=== PATIENT | male | born 1950 | race Caucasian/White ===

== ENCOUNTER 2019-05-17 11:45 | Observation (INO) ==
--- NOTE | 2019-05-17 12:25 | Emergency Department Note ---
Disposition Clinical Impression: Elevated troponin Sinusitis Qualifiers: Sinusitis location: unspecified location Chronicity: acute Recurrence: not specified as recurrent Qualified Code(s): J01.90 - Acute sinusitis, unspecified Disposition: Admitted As Inpatient Condition: Fair Time of Disposition: 15:00 General Adult HPI - General Chief complaint: ED Shortness of Breath/Dyspnea Stated complaint: Fever,CATHY,CRABTREE Time Seen by Provider: 05/17/19 11:48 Source: family Limitations: no limitations Nursing Notes Reviewed: Yes Vital Signs Reviewed: Yes - History of Present Illness HPI Narrative: Mr. Briggs is a 69-year-old male presenting to the ED complaining of fever. His reports yesterday after mowing the lawn he came into the house and was shivering. Should have his temperature and it was 100.8. He is complaining of more shortness of breath and usual. He is on 2 L of home oxygen requiring 3 L today. He is also complaining of diffuse headache which she describes as a sinus-like headache. He is denying any productive cough reports that he has a cough that is producing white sputum. Per he has had poor oral intake for the past 2 days. Also complained of myalgia all over his body. Denies any recent exposure to sick individuals. Denies any rashes. Denies chest pain, abdominal pain, dysuria. Pain Scale: 7 - Related Data Home Medications Medication Instructions Recorded Confirmed Acetaminophen [Tylenol] 1,000 mg PO Q6H PRN 05/02/16 05/17/19 Albuterol Sulfate [Albuterol 2 puff IH Q4HR PRN 05/02/16 05/17/19 Inhaler] Aspirin Enteric Coated [Aspirin EC] 81 mg PO DAILY 05/02/16 05/17/19 Enalapril Maleate [Vasotec] 20 mg PO DAILY 05/02/16 05/17/19 FLUoxetine HCl [PROzac] 40 mg PO DAILY 05/02/16 05/17/19 Fexofenadine HCl 180 mg PO DAILY 05/02/16 05/17/19 Furosemide [Lasix] 80 mg PO DAILY 05/02/16 05/17/19 Lovastatin 40 mg PO DAILY 05/02/16 05/17/19 Metoprolol XL (24 HR) Succ [Toprol 50 mg PO DAILY 05/02/16 05/17/19 XL] Potassium Chloride [K-Tab ER] 20 meq PO DAILY 05/02/16 05/17/19 Fish Oil/Dha/Epa [Fish Oil 1,200 1 each PO DAILY 05/17/19 05/17/19 mg Fish Oil] Fluticasone Propionate Nasal 50 mcg NS DAILY PRN 05/17/19 05/17/19 [Flonase] Folic Acid/Multivit-Min/Lutein 1 each PO DAILY 05/17/19 05/17/19 [Adult Multivitamin Gummies] Allergies Allergy/AdvReac Type Severity Reaction Status Date / Time No Known Allergies Allergy Verified 04/25/16 10:55 Constitutional: Reports: fever, chills. Denies: weakness Eyes: Denies: eye pain, eye discharge, vision change ENT ED: Denies: ear pain, congestion, dysphagia Cardiovascular: Denies: chest pain, dyspnea on exertion, syncope Respiratory: Denies: dyspnea, wheezes Gastrointestinal: Denies: abdominal pain, nausea, vomiting Genitourinary: Denies: urgency, dysuria, frequency Musculoskeletal: Reports: myalgia Integumentary: Denies: rash, abrasion Neurological: Denies: headache, weakness Endocrine: Reports: fatigue Past Medical History - Past Medical History Medical history: Reports: hyperlipidemia, hypertension Surgical history: Reports: appendectomy Psychiatric history: Reports: anxiety, depression - Social History Smoking Status: Former smoker Smokeless Tobacco Status: No Alcohol use: Reports: heavy Drug use: Reports: none Physical Exam - General General appearance: alert - Head Head exam: atraumatic, normocephalic - Eye Eye exam: Present: normal appearance. Absent: EOMI, scleral icterus - ENT ENT exam: normal exam, normal oropharynx, mucous membranes moist - Neck Neck exam: Present: normal inspection, full ROM, trachea midline - Chest Chest inspection: Present: normal inspection. Absent: symmetric chest wall rise - Respiratory Respiratory exam: Present: normal lung sounds bilaterally. Absent: respiratory distress, wheezes - Cardiovascular Cardiovascular exam: Present: regular rate, normal rhythm, +S1, +S2 - Abdominal Exam Abdominal exam: Present: soft, Non-Tender. Absent: distention, guarding - Extremities Exam Extremities exam: Present: normal inspection, full ROM. Absent: pedal edema - Neurological Exam Neurological exam: Present: alert, oriented X3 (Oriented to person place time), CN II-XII intact (Vision intact, hearing intact. Strength 5 out of 5 upper and lower lobe. Facial sensation intact, uvula midline and midline.), other (No nuchal rigidity) - Psychiatric Psychiatric exam: Present: normal affect, normal mood - Skin Skin exam: Present: warm, dry, intact Course Vital Signs Temperature 101.6 F H 05/17/19 11:50 Pulse Rate 67 05/17/19 11:50 Respiratory Rate 24 05/17/19 11:50 Blood Pressure 137/62 05/17/19 11:50 O2 Sat by Pulse Oximetry 91 05/17/19 11:50 Temperature 102.3 F H 05/17/19 21:03 Pulse Rate 79 05/17/19 20:01 Respiratory Rate 20 05/17/19 20:01 Blood Pressure 178/75 05/17/19 20:01 O2 Sat by Pulse Oximetry 97 05/17/19 20:37 Oxygen Delivery Oxygen Delivery Nasal Cannula Medical Decision Making - MDM Narrative Medical decision making narrative: Mr. Garvin is a 61-year-old male presented to ED complaining of fevers. His reports yesterday after mowing the lawn he is shivering had fever 100.8. He is on home oxygen reports that he is requiring more oxygen, usually on 2 L this time requiring 3L. He denies any productive cough. His neurological exam is intact. No nuchal rigidity. Labs show troponin is 0.04. Patient and report no previous diagnosis of congestive heart failure although he is on 80mg Lasix at home. He does not follow any sodium or salt restriction diet. For the fever he will be treated with Augmentin is reporting sinusitis related symptoms. - Medical Records Medical records reviewed: Yes I reviewed the patient's medical records. - Lab Data Lab results reviewed: Yes I reviewed the patient's lab results. Result diagrams: 05/17/19 12:07 05/17/19 12:07 Lab Results 05/17/19 05/17/19 05/17/19 Range/Units 12:07 12:07 12:07 WBC 4.9 (4.3-11.1) K/mcL RBC 4.27 (4.19-5.50) M/mcL Hgb 12.9 (12.9-16.9) g/dL Hct 41.0 (37.5-50.1) % MCV 96.0 (83.0-100.0) fL MCH 30.2 (28.0-33.3) pg MCHC 31.5 L (31.6-35.5) g/dL RDW 12.3 (11.5-14.5) % Plt Count 134 L (140-400) K/mcL MPV 9.2 L (9.4-12.4) fL Immature Gran % 0.4 (0-4) % Seg Neutrophils % 75.3 % Lymphocytes % 13.8 % Monocytes % 9.9 % Eosinophils % 0.0 % Basophils % 0.6 % Neutrophils # 3.7 (1.6-8.9) K/mcL Lymphocytes # 0.7 (0.6-4.6) K/mcL Monocytes # 0.5 (0.0-1.3) K/mcL Eosinophils # 0.0 (0.0-0.6) K/mcL Basophils # 0.0 (0.0-0.2) K/mcL VBG pH (7.32-7.42) pH Units VBG pCO2 (41-51) mmHg VBG pO2 (25-50) mmHg VBG HCO3 (21-27) mEq/L Sodium 134 L (136-145) mEq/L Potassium 3.9 (3.5-5.1) mEq/L Chloride 99 (98-107) mEq/L Carbon Dioxide 31 H (23-29) mEq/L BUN 18 (8-23) mg/dL Creatinine 0.95 (0.70-1.30) mg/dL Est GFR ( Amer) > 60 (> 60) Est GFR (Non-Af Amer) > 60 (> 60) BUN/Creatinine Ratio 19 (6-26) Glucose 116 H (70-105) mg/dL Calculated Osmolality 281 (280-300) Lactic Acid 1.3 (0.5-2.2) mmol/L Calcium 9.0 (8.6-10.3) mg/dL Troponin I 0.04 H* (< 0.04) ng/mL B-Natriuretic Peptide (Less than 100) pg/mL Procalcitonin (0.00-0.15) ng/mL 05/17/19 05/17/19 05/17/19 Range/Units 12:07 12:07 12:48 WBC (4.3-11.1) K/mcL RBC (4.19-5.50) M/mcL Hgb (12.9-16.9) g/dL Hct (37.5-50.1) % MCV (83.0-100.0) fL MCH (28.0-33.3) pg MCHC (31.6-35.5) g/dL RDW (11.5-14.5) % Plt Count (140-400) K/mcL MPV (9.4-12.4) fL Immature Gran % (0-4) % Seg Neutrophils % % Lymphocytes % % Monocytes % % Eosinophils % % Basophils % % Neutrophils # (1.6-8.9) K/mcL Lymphocytes # (0.6-4.6) K/mcL Monocytes # (0.0-1.3) K/mcL Eosinophils # (0.0-0.6) K/mcL Basophils # (0.0-0.2) K/mcL VBG pH 7.36 (7.32-7.42) pH Units VBG pCO2 54 H (41-51) mmHg VBG pO2 45 (25-50) mmHg VBG HCO3 31 H (21-27) mEq/L Sodium (136-145) mEq/L Potassium (3.5-5.1) mEq/L Chloride (98-107) mEq/L Carbon Dioxide (23-29) mEq/L BUN (8-23) mg/dL Creatinine (0.70-1.30) mg/dL Est GFR ( Amer) (> 60) Est GFR (Non-Af Amer) (> 60) BUN/Creatinine Ratio (6-26) Glucose (70-105) mg/dL Calculated Osmolality (280-300) Lactic Acid (0.5-2.2) mmol/L Calcium (8.6-10.3) mg/dL Troponin I (< 0.04) ng/mL B-Natriuretic Peptide 60 (Less than 100) pg/mL Procalcitonin 0.27 H (0.00-0.15) ng/mL - Radiology Data Radiology results reviewed: Yes I reviewed the patient's radiology results. Attestation Statement - Attestation Attestation: I, Ermias June, examined this patient and my medical decision-making was reviewed with the TOOL DESIGN DRAFTSPERSON/PA/Advanced Practice Nurse/Resident Physician. I agree with the documented findings, disposition and treatment plan as described except to the extent set forth below. 69-year-old male presents emergency department for concerns of fever. Patient states he has congestion of his bilateral nasal sinuses, denies recent trauma, vomiting, diarrhea, chest pain, palpitations, syncope, abdominal pain, diarrhea, hematochezia, melena. Patient has a fever in the emergency department. He does not have meningismus findings. No tenderness to palpation of the midline posterior neck and is able to have range of motion of his neck in all directions without pain. He is awake alert and answering questions appropriately during the exam. Chest x-ray did not show obvious infiltrate. He denies dysuria or hematuria. Patient has an elevated troponin and his states that he was more fatigued and weak today as he is walking in the hospital. He takes 80 mg of Lasix daily however he denies a diagnosis of congestive heart failure. He states his last cardiac ultrasound was 2 years ago. He has an elevated troponin emergency department today, EKG did not show evidence of acute STEMI. I reviewed the EKG with the resident and agree with the interpretation. Patient will be admitted to the hospitalist for further care and evaluation.
[2019-05-17 12:32] LABS: Basophils % 0.6 %; Hemoglobin 12.9 g/dL (12.9-16.9); Immature Granulocytes % 0.4 % (0-4); Lymphocytes # 0.7 K/mcL (0.6-4.6); Lymphocytes % 13.8 %; Mean Corpuscular HGB Conc 31.5 g/dL (31.6-35.5); Mean Corpuscular Hemoglobin 30.2 pg (28.0-33.3); Mean Platelet Volume 9.2 fL (9.4-12.4); Monocytes # 0.5 K/mcL (0.0-1.3); Monocytes % 9.9 %; Neutrophils # 3.7 K/mcL (1.6-8.9); Platelet Count 134 K/mcL (140-400); Red Blood Count 4.27 M/mcL (4.19-5.50); Red Cell Distribution Width 12.3 % (11.5-14.5); Segmented Neutrophils % 75.3 %; White Blood Count 4.9 K/mcL (4.3-11.1)
[2019-05-17 12:51] LABS: VBG HCO3 31 mEq/L (21-27); VBG PCO2 54 mmHg (41-51); VBG PH 7.36 pH Units (7.32-7.42); VBG PO2 45 mmHg (25-50)
[2019-05-17 12:53] LABS: BUN/Creatinine Ratio 19 (6-26); Blood Urea Nitrogen 18 mg/dL (8-23); Carbon Dioxide 31 mEq/L (23-29); Chloride 99 mEq/L (98-107); Glucose 116 mg/dL (70-105); Osmolality,Calculated 281 (280-300); Potassium 3.9 mEq/L (3.5-5.1); Sodium 134 mEq/L (136-145); eGFR For African Americans > 60 (> 60); eGFR For Non-African Americans > 60 (> 60)
[2019-05-17] MEDS ORDERED: Acetaminophen 325 MG TABLET PO ONE (12:56)
[2019-05-17 12:57] LABS: Troponin I 0.04 ng/mL (< 0.04)
--- NOTE | 2019-05-17 14:30 | Electrocardiograph Report ---
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
[2019-05-17] MEDS ORDERED: Fluticasone Propionate Nasal 50 MCG/SPRAY BOTTLE NS PRN (15:33)
[2019-05-17] MEDS ORDERED: Ondansetron 4 MG/2 ML VIAL IVP PRN (15:34)
[2019-05-17] MEDS ORDERED: Acetaminophen 325 MG TABLET PO PRN (15:34)
--- NOTE | 2019-05-17 15:36 | Internal Med History&Physical ---
Date of Encounter: 05/17/19 Time of Encounter: 15:26 Internal Medicine - H&P: HPI Chief complaint: Fever Admitted From: Emergency Dept History of present illness: Arjun Briggs is a 69 M w hx morbid obesity, HFpEF, COPD, PAULINA on 2L, HTN, HLD, anx/dep, who p/w fever. Pt accompanied by who provides most of history; he is fairly exhausted. Says for the last 2 days he has felt alternating warm and chilled, and that took temp last night showing fever and again today still high. 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 He says he's had a headache and myalgias for the last two days, and that for the last 2-3 days noting increased nasal congestion. Does state he has some cough and sputum but this is baseline, feeling short of breath a bit too but no CP. His leg swelling is at baseline, too. Denies any sick contacts, no children/pets/public areas recently. No N/V/D, no abd pain, no rash, no dysuria. In the ED, pt febrile 102 and tachypneic 22-26. CXR wnl. Labs notable for WBC 4, Hb 13, Plt 134, Na 134, CO2 31, Cr 1, trop 0.04. Pt given augmentin for possible sinus infection and then admitted for cardiac evaluation. Past medical, surgical, social, and family histories reviewed and updated as below. Past Med Surg Social Fam HX - Past Medical History Medical history: hyperlipidemia, hypertension Additional medical history: sleep apnea, obesity, aroctic valve sclerosis, diastolic dysfunction, alcohol abuse Psychiatric history: anxiety, depression - Past Surgical History Surgical History: appendectomy Additional surgical history: T&A - Social History Smoking Status: Former smoker Smokeless Tobacco Status: No Alcohol use: heavy Drug use: none Internal Medicine - H&P: Meds Acetaminophen [Tylenol] 1,000 mg PO Q6H PRN 05/02/16 [History] Albuterol Sulfate [Albuterol Inhaler] 2 puff IH Q4HR PRN 05/02/16 [History] Aspirin Enteric Coated [Aspirin EC] 81 mg PO DAILY 05/02/16 [History] Enalapril Maleate [Vasotec] 20 mg PO DAILY 05/02/16 [History] FLUoxetine HCl [PROzac] 40 mg PO DAILY 05/02/16 [History] Fexofenadine HCl 180 mg PO DAILY 05/02/16 [History] Furosemide [Lasix] 80 mg PO DAILY 05/02/16 [History] Lovastatin 40 mg PO DAILY 05/02/16 [History] Metoprolol XL (24 HR) Succ [Toprol XL] 50 mg PO DAILY 05/02/16 [History] Potassium Chloride [K-Tab ER] 20 meq PO DAILY 05/02/16 [History] Fish Oil/Dha/Epa [Fish Oil 1,200 mg Fish Oil] 1 each PO DAILY 05/17/19 [History] Fluticasone Propionate Nasal [Flonase] 50 mcg NS DAILY PRN 05/17/19 [History] Folic Acid/Multivit-Min/Lutein [Adult Multivitamin Gummies] 1 each PO DAILY 05/17/19 [History] Allergy/AdvReac Type Severity Reaction Status Date / Time No Known Allergies Allergy Verified 04/25/16 10:55 All Systems PM: A 10-system review of systems was performed and is negative for pertinent findin gs except as documented above in the HPI. - Constitutional Vitals: Temp Pulse Resp BP Pulse Ox 101.6 F H 63 26 151/56 98 05/17/19 11:56 05/17/19 14:27 05/17/19 14:27 05/17/19 14:27 05/17/19 14:27 Exam: General: NAD, good eye contact, morbidly obese, sitting up, is profusely diaphoretic Head: Atraumatic, normocephalic. Face symmetric Eyes: EOMI, sclerae anicteric ENT: Mucous membranes moist. Normal oral mucosa and moderate dentition. Trachea midline. Unable to palpate cervical lymphadenopathy Thoracic: No visible chest wall deformities. Does have slight end-expiratory wheezing throughout lung borges, no epophony Cardio: Normal S1 and S2, regular rate and rhythm Abdomen: Soft, nontender, nondistended. Bowel sounds present. No rebound. Morbidly obese. Extremities: Warm, well perfused. DP pulses 2+ b/l. No clubbing, cyanosis. Pitting edema bordering on lymphedema b/l LE to knees Skin: Intact. No rashes, bruises, or ulcers Neuro: Awake, fully oriented. Good memory, concentration, attention. Speech fluent. CN II-XII grossly intact. Strength 5/5 in b/l UE and LE Internal Med - H&P Results - Labs CBC & Chem 7: 05/17/19 12:07 05/17/19 12:07 Labs: Short CBC 05/17/19 Range/Units 12:07 WBC 4.9 (4.3-11.1) K/mcL Hgb 12.9 (12.9-16.9) g/dL Hct 41.0 (37.5-50.1) % Plt Count 134 L (140-400) K/mcL Neutrophils # 3.7 (1.6-8.9) K/mcL BMP 05/17/19 12:07 Sodium 134 L Potassium 3.9 Chloride 99 Carbon Dioxide 31 H BUN 18 Creatinine 0.95 Glucose 116 H Calcium 9.0 Cardiac Enzymes 05/17/19 Range/Units 12:07 Troponin I 0.04 H* (< 0.04) ng/mL - ABG Interpretation ABG results: 05/17/19 12:48 VBG pH 7.36 VBG pCO2 54 H VBG pO2 45 VBG HCO3 31 H - Impressions ITS Impressions Chest X-Ray 05/17/19 11:49 IMPRESSION: No acute cardiopulmonary process identified. D/ / Stephan Zarate MD / Stephan Zarate MD Interpreting Provider: Stephan Zarate MD - Summary of Assessment and Plan Summary of Assessment and Plan: Arjun Briggs is a 69 M w hx morbid obesity, HFpEF, COPD, PAULINA on 2L, HTN, HLD, anx/dep, who p/w fever, congestion, myalgias, found to have fever and tachypnea, concerning for acute viral infection. Pt admitted due to concern for mildly elevated trop. Sepsis: persistent fever, was tachypneic on admission, unknown source but clinical history of congestion/myalgias strongly suspicious for viral etiology - given Augmentin for possible sinusitis in ED, will d/c abx - RVP - check procal - blood cultures not checked in ED; agree due to presumed viral etiology - supportive care, low threshold to initiate abx if pt has any signs of decompensation but currently vitals wnl Elevated troponin: pt septic appearing (febrile and diaphoretic) as likely cause of demand ischemia in this morbidly obese former smoker w HTN/HLD. - repeat trop in AM HFpEF: holding home lasix 80 daily HTN: holding home lisinopril 20 HLD: home statin, ASA PAULINA/OHS: reports unable to tolerate cpap and thus wears O2 at night COPD and chronic hypoxic resp failure: home inhalers, home 2L O2 Anx/dep: home prozac Morbid obesity: BMI 45 PPx: lovenox FEN: cardiac, no MIVF Lines: PIV Consults: Code: Full Dispo: obs for sepsis, anticipate 1-2 days, will be homegoing - Time Spent With Patient Total time spent is greater than 50% in coordination of care (as documented) at patient's floor/unit and/or counseling patient:
[2019-05-17 16:37] LABS: Bilirubin,Urine Negative (Negative); Blood,Urine Negative (Negative); Clarity,Urine Clear (Clear); Color,Urine Yellow (Yellow); Glucose,Urine (UA) Normal (Normal); Ketones,Urine Negative (Negative); Leukocyte Esterase,Urine Negative (Negative); Nitrite,Urine Negative (Negative); Protein,Urine Trace mg/dL (Neg-Trace); Urobilinogen,Urine Normal (Normal)
[2019-05-17 18:57] LABS: Adenovirus Not Detected (Not Detect); Bordetella Pertussis Not Detected (Not Detect); Chlamydophila pneumoniae Not Detected (Not Detect); Coronavirus 229E Not Detected (Not Detect); Coronavirus HKU1 Not Detected (Not Detect); Coronavirus NL63 Not Detected (Not Detect); Coronavirus OC43 Not Detected (Not Detect); Human Metapneumovirus Not Detected (Not Detect); Human Rhinovirus/Enterovirus Not Detected (Not Detect); Influenza A Subtype 2009 H1 Not Detected (Not Detect); Influenza A Untypeable Not Detected (Not Detect); Influenza B Not Detected (Not Detect); Mycoplasma pneumoniae Not Detected (Not Detect); Parainfluenza Virus 1 Not Detected (Not Detect); Parainfluenza Virus 2 Not Detected (Not Detect); Parainfluenza Virus 3 Not Detected (Not Detect); Parainfluenza Virus 4 Not Detected (Not Detect); Respiratory Syncytial Virus Not Detected (Not Detect)
[2019-05-18] MEDS ORDERED: Acetaminophen IV 1,000 MG/100 ML INFUS..BTL IVPB ONE (03:48)
[2019-05-18] MEDS ORDERED: *HR* Enoxaparin 40 MG/0.4 ML SYRINGE SQ SCH (06:00)
[2019-05-18 07:37] LABS: Hematocrit 36.8 % (37.5-50.1); Mean Corpuscular HGB Conc 32.6 g/dL (31.6-35.5); Mean Corpuscular Hemoglobin 31.3 pg (28.0-33.3); Mean Corpuscular Volume 95.8 fL (83.0-100.0); Mean Platelet Volume 9.5 fL (9.4-12.4); Platelet Count 113 K/mcL (140-400); Red Blood Count 3.84 M/mcL (4.19-5.50); Red Cell Distribution Width 12.3 % (11.5-14.5); White Blood Count 4.1 K/mcL (4.3-11.1)
[2019-05-18 07:55] LABS: BUN/Creatinine Ratio 15 (6-26); Blood Urea Nitrogen 14 mg/dL (8-23); Calcium 8.7 mg/dL (8.6-10.3); Carbon Dioxide 32 mEq/L (23-29); Chloride 98 mEq/L (98-107); Glucose 106 mg/dL (70-105); Osmolality,Calculated 285 (280-300); Phosphorous 2.6 mg/dL (2.7-4.5); Potassium 4.1 mEq/L (3.5-5.1); Sodium 137 mEq/L (136-145); Troponin I 0.08 ng/mL (< 0.04); eGFR For African Americans > 60 (> 60); eGFR For Non-African Americans > 60 (> 60)
[2019-05-18] MEDS: Metoprolol XL (24 HR) Succ 50 MG TAB.ER.24H PO SCH (08:04)
[2019-05-18] MEDS: FLUoxetine 20 MG CAPSULE PO SCH (08:04)
[2019-05-18] MEDS: Lisinopril 20 MG TABLET PO SCH (08:04)
[2019-05-18] MEDS ORDERED: Aspirin Enteric Coated 81 MG Tablet PO SCH (09:00)
--- NOTE | 2019-05-18 11:04 | Internal Med Progress Note ---
Hospitalist Progress Note - Encounter Date of Encounter: 05/18/19 Time of Encounter: 10:59 - Subjective Interval History: Pt continued to fever overnight, but this AM says his fever finally broke and he feels much better. Says this occurred after IV tylenol dose. SOB and myalgias much improved. No N/V/D. - Exam Vitals: Temp Pulse Resp BP Pulse Ox 98.1 F 58 16 130/70 99 05/18/19 07:45 05/18/19 07:45 05/18/19 07:45 05/18/19 07:45 05/18/19 07:45 Exam: General: NAD, good eye contact, morbidly obese, sitting up, appears comfortable Thoracic: Does have slight end-expiratory wheezing throughout lung borges, no egophony Cardio: Normal S1 and S2, regular rate and rhythm Abdomen: Soft, nontender, morbidly obese. Extremities: Warm, well perfused. Pitting edema bordering on lymphedema b/l LE to knees Skin: Intact. No rashes, bruises, or ulcers Neuro: Awake, fully oriented. Speech fluent. - Summary of Assessment and Plan Summary of Assessment and Plan: Arjun Briggs is a 69 M w hx morbid obesity, HFpEF, COPD, PAULINA on 2L, HTN, HLD, anx/dep, who p/w fever, congestion, myalgias, found to have fever and tachypnea, concerning for acute viral infection. Pt admitted due to concern for mildly elevated trop. Sepsis: clinical hx suggestive of viral etiology, both RVP and pro-jaime negative, did continue to fever overnight but today is much improved - holding empiric abx - BCx - supportive care, low threshold to initiate abx Elevated troponin: demand ischemia from sepsis - TTE pending HFpEF: holding home lasix 80 daily HTN: holding home lisinopril 20 HLD: home statin, ASA PAULINA/OHS: reports unable to tolerate cpap and thus wears O2 at night COPD and chronic hypoxic resp failure: home inhalers, home 2L O2 Anx/dep: home prozac Morbid obesity: BMI 45 PPx: lovenox FEN: cardiac, no MIVF Lines: PIV Consults: Code: Full Dispo: obs for sepsis, anticipate d/c today or tomorrow, will be homegoing Internal Medicine: Result - Labs CBC & Chem 7: 05/18/19 07:02 05/18/19 07:02 Labs: Short CBC 05/17/19 05/18/19 Range/Units 12:07 07:02 WBC 4.9 4.1 L (4.3-11.1) K/mcL Hgb 12.9 12.0 L (12.9-16.9) g/dL Hct 41.0 36.8 L (37.5-50.1) % Plt Count 134 L 113 L (140-400) K/mcL Neutrophils # 3.7 (1.6-8.9) K/mcL BMP 05/17/19 05/18/19 12:07 07:02 Sodium 134 L 137 Potassium 3.9 4.1 Chloride 99 98 Carbon Dioxide 31 H 32 H BUN 18 14 Creatinine 0.95 0.94 Glucose 116 H 106 H Calcium 9.0 8.7 Cardiac Enzymes 05/17/19 05/18/19 Range/Units 12:07 07:02 Troponin I 0.04 H* 0.08 H* (< 0.04) ng/mL Urine 05/17/19 Range/Units 16:20 Urine Color Yellow (Yellow) Urine Clarity Clear (Clear) Urine pH 6.0 (5.0-8.0) pH Units Ur Specific [place] 1.010 (1.010-1.025) Urine Protein Trace (Neg-Trace) mg/dL Urine Glucose (UA) Normal (Normal) mg/dL - Impressions Impressions Chest X-Ray 05/17/19 11:49 IMPRESSION: No acute cardiopulmonary process identified. D/ / Stephan Zarate MD / Stephan Zarate MD Interpreting Provider: Stephan Zarate MD Consult Discharge Plan - Plan Referrals: Jigna Yeh MD [Primary Care Provider] -
--- NOTE | 2019-05-18 21:22 | Event Note ---
Date of Encounter: 05/18/19 Time of Encounter: 19:20 Alerted by pts. nurse that the pt. had fallen while in the bathroom and hit his head in the shower. I reviewed the pts. chart. Pt. admitted for fever, weakness, and sepsis. Pt. also has hx of alcohol abuse. Went to see the pt. who was in bed. I asked him what happened. He stated that he was in the bathroom and his feet became tangled and he fell into the shower, striking the back top of his head. I examined the pt. who denied a headache but stated that he felt "foggy". I asked the pt. if he was on blood thinners to which he responded "yes" but could not remember which one. No anticoagulation currently listed in patient's chart. I instructed the nurse to call the patient's to verify what anticoagulation he was on. stated [address] of the head/brain ordered to assess for intracranial bleeding. Pt. was neurologically intact during my examination. I asked the pt. when his last alcohol drink was. He stated that he stopped drinking two years ago but had a individual bottle of whiskey he received for [employer] several days ago when he began feeling sick. Blood alcohol level ordered which returned <10. Ordered Lovenox 40 mg SQ 06:00 DCd. Bilateral SCDs on LEs ordered for DVT prophylaxis. Falls precautions and up with assist only ordered. I told the pt. he was not to get out of bed w/o assistance. Pt. expressed understanding and agreement to this plan. CT of the head/brain results show no acute intracranial hemorrhage, mass effect, or midli ne shift. No abnormal extra-axial fluid collection. The [place]-white differentiation is maintained without evidence of an acute infarct. Mild parenchymal volume loss. No hydrocephalus. The visualized portion of the orbits demonstrate no acute abnormality. Minimal mucosal thickening of the right maxillary sinus. No acute abnormality of the visualized skull or soft tissues. Neuro checks Q1HR ordered. Will repeat CT of the head/brain at 06:00 to re-assess for intracranial bleeding. Nurse instructed to continue monitoring this pt. very closely and alert me immediately of any adverse or neurological changes.
--- NOTE | 2019-05-19 07:36 | Discharge Summary ---
- NOTES TO OUTPATIENT PROVIDER Notes to Outpatient Provider: Needs stress test Date of Encounter: 05/19/19 Time of Encounter: 07:33 Hospital course: Dear Doctors, I recently had the opportunity to care for this patient during their recent hospital stay at [facility]. Arjun Briggs is a 69 M w hx morbid obesity, HFpEF, COPD, PAULINA on 2L, HTN, HLD, anx/dep, who presented at time of admission with fever, congestion, and myalgias for 2 days. In the ED, he was found to have fever and tachypnea, concerning for acute viral infection. He was given augmentin to cover for possible sinusitis, but because his troponin was 0.04 the pt was admitted. In the hospital, his fever broke after 1 day of supportive care. Trops peaked at 0.08 from the demand of his fevers. He will need outpatient stress testing. An Echo showed only mild diastolic dysfunction and asymmetric septal hypertrophy leading to mild LVOT gradient of 15. The night prior to d/c, the patient tripped in the shower and bonked his head; two subsequent head CTs showed no intr acranial pathology. Patient feeling well on day of discharge and will follow up with his PCP. Dx: acute viral infection, sepsis, demand ischemia Pertinent tests/consults: head CT unremarkable, TTE unremarkable Follow up: PCP 1 week for stress test Tests pending: blood cultures ngtd Med changes: decrease enalapril from 20 to 10 until outpatient f/u Mental status: awake, fully oriented Code status: Full It has been my pleasure participating in this patient's care. Please contact me with any questions or concerns regarding their hospital stay. Sincerely, Abdirashid Abreu MD - Discharge Medications Prescriptions: Continued Metoprolol XL (24 HR) Succ [Toprol Xl] 50 mg PO DAILY Furosemide [Lasix] 80 mg PO DAILY Potassium Chloride [K-Tab ER] 20 meq PO DAILY FLUoxetine HCl [Prozac] 40 mg PO DAILY Fexofenadine HCl 180 mg PO DAILY Aspirin Enteric Coated [Aspirin EC] 81 mg PO DAILY Albuterol Sulfate [Albuterol Inhaler] 2 puff IH Q4HR PRN PRN Reason: Shortness Of Breath Acetaminophen [Tylenol] 1,000 mg PO Q6H PRN PRN Reason: PAIN/HEADACHE Lovastatin 40 mg PO DAILY Fluticasone Propionate Nasal [Flonase] 50 mcg NS DAILY PRN PRN Reason: ALLERGIES Changed Enalapril Maleate [Vasotec] 10 mg PO DAILY #0 Discontinued Fish Oil/Dha/Epa [Fish Oil 1,200 mg Fish Oil] 1 each PO DAILY Folic Acid/Multivit-Min/Lutein [Adult Multivitamin Gummies] 1 each PO DAILY Home Medications: Acetaminophen [Tylenol] 1,000 mg PO Q6H PRN 05/02/16 [History] Albuterol Sulfate [Albuterol Inhaler] 2 puff IH Q4HR PRN 05/02/16 [History] Aspirin Enteric Coated [Aspirin EC] 81 mg PO DAILY 05/02/16 [History] FLUoxetine HCl [Prozac] 40 mg PO DAILY 05/02/16 [History] Fexofenadine HCl 180 mg PO DAILY 05/02/16 [History] Furosemide [Lasix] 80 mg PO DAILY 05/02/16 [History] Lovastatin 40 mg PO DAILY 05/02/16 [History] Metoprolol XL (24 HR) Succ [Toprol Xl] 50 mg PO DAILY 05/02/16 [History] Potassium Chloride [K-Tab ER] 20 meq PO DAILY 05/02/16 [History] Fluticasone Propionate Nasal [Flonase] 50 mcg NS DAILY PRN 05/17/19 [History] Enalapril Maleate [Vasotec] 10 mg PO DAILY #0 05/19/19 [Rx] Allergies/Adverse Reactions: Allergy/AdvReac Type Severity Reaction Status Date / Time No Known Allergies Allergy Verified 04/25/16 10:55 Date of admission: 05/17/19 14:36 Primary care physician: Jigna Yeh MD - Constitutional Vitals: Temp Pulse Resp BP Pulse Ox 98.1 F 44 20 130/75 99 05/19/19 03:28 05/19/19 03:28 05/19/19 03:28 05/19/19 03:28 05/19/19 03:28 Exam: General: NAD, good eye contact, morbidly obese, sitting up, appears comfortable HEENT: atraumatic, normocephalic, pupils symmetric Thoracic: Does have slight end-expiratory wheezing throughout lung borges, no egophony Cardio: Normal S1 and S2, regular rate and rhythm Abdomen: Soft, nontender, morbidly obese. Extremities: Warm, well perfused. Pitting edema bordering on lymphedema b/l LE to knees Skin: Intact. No rashes, bruises, or ulcers Neuro: Awake, fully oriented. Speech fluent. - Patient Status Disposition: Home, Self-Care Condition: Fair Functional capacity at discharge: independent ambulation Overall status at discharge: patient is back to baseline - Discharge Instructions Follow Up With: Jigna Yeh MD [Primary Care Provider] - 05/27/19 11:45 am () Additional Instructions: Follow up with your PCP to schedule a stress test - Diet and Activity Activity: resume usual activities as tolerated Diet: low salt diet
[2019-05-19 07:57] LABS: Basophils % 0.5 %; Eosinophils # 0.1 K/mcL (0.0-0.6); Eosinophils % 1.5 %; Hematocrit 34.9 % (37.5-50.1); Hemoglobin 11.4 g/dL (12.9-16.9); Immature Granulocytes % 0.2 % (0-4); Lymphocytes # 1.6 K/mcL (0.6-4.6); Lymphocytes % 27.5 %; Mean Corpuscular HGB Conc 32.7 g/dL (31.6-35.5); Mean Corpuscular Hemoglobin 30.8 pg (28.0-33.3); Mean Corpuscular Volume 94.3 fL (83.0-100.0); Mean Platelet Volume 9.3 fL (9.4-12.4); Monocytes # 0.8 K/mcL (0.0-1.3); Monocytes % 14.5 %; Neutrophils # 3.2 K/mcL (1.6-8.9); Platelet Count 118 K/mcL (140-400); Red Cell Distribution Width 12.6 % (11.5-14.5); Segmented Neutrophils % 55.8 %; White Blood Count 5.8 K/mcL (4.3-11.1)
[2019-05-19 08:07] VITALS: BP 112/53
[2019-05-19 08:18] LABS: BUN/Creatinine Ratio 21 (6-26); Blood Urea Nitrogen 19 mg/dL (8-23); Calcium 8.7 mg/dL (8.6-10.3); Carbon Dioxide 30 mEq/L (23-29); Chloride 102 mEq/L (98-107); Glucose 131 mg/dL (70-105); Osmolality,Calculated 292 (280-300); Potassium 3.6 mEq/L (3.5-5.1); Sodium 139 mEq/L (136-145); Troponin I 0.03 ng/mL (< 0.04); eGFR For African Americans > 60 (> 60); eGFR For Non-African Americans > 60 (> 60)
[2019-05-19] MEDS: FLUoxetine 20 MG CAPSULE PO SCH (09:17)
[2019-05-19] MEDS: Metoprolol XL (24 HR) Succ 50 MG TAB.ER.24H PO SCH (09:17)
[2019-05-19] MEDS: Lisinopril 20 MG TABLET PO SCH (09:18)
[2019-05-20] MEDS ORDERED: Lisinopril 20 MG TABLET PO SCH (09:00)
== END 2019-05-19 11:52 | disposition home or self-care (01) ==
LOC: 2ANU 11:45 → EMEROOARM 11:45 → SUATTDRO 14:36 → 2ANU 15:22
PROVIDERS: ADMIT Internal Medicine; ATTEND Internal Medicine

== ENCOUNTER 2021-09-13 10:43 | Inpatient (IN) ==
[2021-09-13] MEDS ORDERED: *HR* Propofol 200 MG/20 ML VIAL IVP ONE ×2 (12:16→16:18)
[2021-09-13] MEDS ORDERED: *HR* FentaNYL (PF) 100 MCG/2 ML VIAL ONE (12:16)
[2021-09-13] MEDS ORDERED: *HR* Succinylcholine 200 MG/10 ML VIAL IVP ONE (12:17)
[2021-09-13] MEDS ORDERED: Lidocaine -MPF 2% 5 ML VIAL ONE (12:17)
[2021-09-13] MEDS ORDERED: Lidocaine HCL 4 ML Topical Solution (Laryng-O-Jet Kit Sterile Pak) TP ONE (12:17)
[2021-09-13] MEDS ORDERED: cefOXitin 2,000 MG in Water for inj. (sterile) 10 ML IVP ONE (12:17)
[2021-09-13] MEDS ORDERED: *HR* Rocuronium Bromide 50 MG/5 ML VIAL ONE (12:17)
[2021-09-13] MEDS ORDERED: Ondansetron 4 MG/2 ML VIAL ONE (12:17)
[2021-09-13] MEDS ORDERED: Ringers Solution, Lactated 1,000 ML IVC SCH (12:30)
[2021-09-13] MEDS ORDERED: Ondansetron 4 MG/2 ML VIAL IVP PRN ×2 (12:57→20:25)
[2021-09-13] MEDS ORDERED: Acetaminophen IV 1,000 MG/100 ML BAG IVPB ONE ×2 (12:57→16:46)
[2021-09-13] MEDS ORDERED: Promethazine 6.25 MG in Water for inj. (sterile) 20 ML IVPB PRN (12:57)
[2021-09-13] MEDS ORDERED: Ondansetron 4 MG/2 ML VIAL IVP ONE (12:57)
[2021-09-13] MEDS ORDERED: Albuterol 2.5 MG/3 ML NEBULIZER IH PRN (12:57)
[2021-09-13] MEDS ORDERED: *HR* HYDROmorphone PF 0.5 MG/0.5 ML SYRINGE IVP PRN (12:57)
[2021-09-13] MEDS ORDERED: *HR* OxyCODONE Immed Rel 5 MG TABLET PO PRN (12:57)
[2021-09-13] MEDS ORDERED: Famotidine 20 MG/2 ML VIAL IVP ONE (12:57)
[2021-09-13] MEDS ORDERED: EPHEDrine 50 MG/ML VIAL ONE (17:35)
[2021-09-13] MEDS ORDERED: Neostigmine Methylsulfate 3 MG/3 ML SYRINGE ONE (19:06)
[2021-09-13] MEDS ORDERED: Ketorolac 30 MG/ML VIAL ONE (19:08)
[2021-09-13] MEDS ORDERED: Naloxone 0.4 MG/ML INJ IVP PRN (20:25)
[2021-09-13] MEDS ORDERED: *HR* FentaNYL (PF) 100 MCG/2 ML VIAL IVP PRN (20:53)
[2021-09-13] MEDS: 0.9 % Sodium Chloride 1,000 ML IVC SCH (21:10)
[2021-09-14] MEDS: Acetaminophen IV 1,000 MG/100 ML BAG IVPB SCH ×4 (00:16→17:51)
[2021-09-14] MEDS: cefOXitin 1,000 MG in 0.9 % Sodium Chloride Mini Bag 100 ML IVPB SCH ×3 (00:18→15:51)
[2021-09-14] MEDS: Ketorolac 30 MG/ML VIAL IVP SCH ×3 (00:30→12:30)
[2021-09-14 06:38] LABS: Basophils % 0.1 %; Hematocrit 33.6 % (37.5-50.1); Hemoglobin 10.7 g/dL (12.9-16.9); Immature Granulocytes % 0.6 % (0-4); Lymphocytes # 0.8 K/mcL (0.6-4.6); Lymphocytes % 6.2 %; Mean Corpuscular HGB Conc 31.8 g/dL (31.6-35.5); Mean Corpuscular Hemoglobin 30.4 pg (28.0-33.3); Mean Corpuscular Volume 95.5 fL (83.0-100.0); Mean Platelet Volume 9.4 fL (9.4-12.4); Monocytes # 0.3 K/mcL (0.0-1.3); Monocytes % 2.3 %; Neutrophils # 11.2 K/mcL (1.6-8.9); Platelet Count 218 K/mcL (140-400); Red Blood Count 3.52 M/mcL (4.19-5.50); Red Cell Distribution Width 12.6 % (11.5-14.5); Segmented Neutrophils % 90.8 %; White Blood Count 12.3 K/mcL (4.3-11.1)
[2021-09-14 07:05] LABS: BUN/Creatinine Ratio 19 (6-26); Blood Urea Nitrogen 24 mg/dL (8-23); Calcium 8.7 mg/dL (8.6-10.3); Carbon Dioxide 22 mEq/L (23-29); Chloride 108 mEq/L (98-107); Glucose 139 mg/dL (70-105); Osmolality,Calculated 292 (280-300); Potassium 4.7 mEq/L (3.5-5.1); Sodium 138 mEq/L (136-145); eGFR For African Americans > 60 (> 60); eGFR For Non-African Americans 56 (> 60)
[2021-09-14] MEDS: lisinopriL 20 MG TABLET PO SCH (08:10)
[2021-09-14] MEDS: 0.9 % Sodium Chloride 1,000 ML IVC SCH ×2 (08:11→20:22)
[2021-09-14] MEDS: amLODIPine 5 MG TABLET PO SCH (08:11)
[2021-09-14] MEDS: *HR* Heparin 5,000 UNIT/ML VIAL SQ SCH (20:29)
[2021-09-15] MEDS: cefOXitin 1,000 MG in 0.9 % Sodium Chloride Mini Bag 100 ML IVPB SCH ×4 (00:01→23:53)
[2021-09-15] MEDS: 0.9 % Sodium Chloride 1,000 ML IVC SCH ×2 (05:52→17:10)
[2021-09-15] MEDS: Acetaminophen IV 1,000 MG/100 ML BAG IVPB SCH ×5 (05:53→23:53)
[2021-09-15] MEDS: *HR* Heparin 5,000 UNIT/ML VIAL SQ SCH ×2 (05:53→17:58)
[2021-09-15] MEDS: lisinopriL 20 MG TABLET PO SCH (08:46)
[2021-09-15] MEDS: amLODIPine 5 MG TABLET PO SCH (08:46)
[2021-09-16] MEDS: Acetaminophen IV 1,000 MG/100 ML BAG IVPB SCH ×2 (05:46→12:07)
[2021-09-16] MEDS: 0.9 % Sodium Chloride 1,000 ML IVC SCH (05:46)
[2021-09-16] MEDS: *HR* Heparin 5,000 UNIT/ML VIAL SQ SCH (05:47)
[2021-09-16 07:20] VITALS: PULSE 56
[2021-09-16] MEDS: cefOXitin 1,000 MG in 0.9 % Sodium Chloride Mini Bag 100 ML IVPB SCH (08:45)
[2021-09-16] MEDS: lisinopriL 20 MG TABLET PO SCH (08:47)
[2021-09-16] MEDS ORDERED: FLU Vac QV 21-22 (6Month+)/PF 0.5 ML SYRINGE IM ONE (10:01)
[2021-09-16 11:04] VITALS: BP 159/69; TEMP 98.2; O2SAT 99
[2021-09-16] MEDS: amLODIPine 5 MG TABLET PO SCH (13:14)
== END 2021-09-16 13:35 | disposition home or self-care (01) | DRG 330 ==
LOC: SAMDAY 10:43 → 3ANU 20:12
PROVIDERS: ADMIT Surgery; ATTEND Surgery